=== PATIENT | female | born 2000 | race Caucasian/White ===

== ENCOUNTER 2023-04-10 21:59 | Emergency (ER) | payer OTHER ==
[2023-04-10 22:08] VITALS: BP 123/77; PULSE 100; RESP 18; TEMP 98.1; BMI 41.1
== END 2023-04-10 23:00 | disposition left against medical advice (07) ==
LOC: JER 21:59
DX: R07.9 Chest pain, unspecified (principal)
CPT/HCPCS: 93005; 93010